=== PATIENT | male | born 1995 | race Caucasian/White ===

== ENCOUNTER 2016-11-05 13:46 | Emergency (ER) | payer MEDICAID ==
[~2016-11-05] VITALS: Ht 172.7 cm; Wt 61.4 kg
[2016-11-05 13:50] VITALS: TEMP 97.9
[2016-11-05 15:32] LABS: ADJUSTED CALCIUM 10.3 mg/dL (8.4-10.2); ALBUMIN 3.9 gm/dL (3.5-5.0); BILIRUBIN,TOTAL 0.8 mg/dL (0.0-1.0); CALCIUM 10.2 mg/dL (8.4-10.2); CREATININE, serum 0.81 mg/dL (0.66-1.25); TOTAL PROTEIN 8.2 gm/dL (6.4-8.2)
[2016-11-05 15:39] LABS: MEAN CELL VOLUME 82 fl (80.0-100.0); MEAN CORPUSCULAR HGB CONC 31 g/dl (33.0-37.0); MEAN PLATELET VOLUME 9.6 fl (7.4-10.4); PLATELET COUNT 399 K/mm3 (130-400); REDCELL DISTRIBUTION WIDTH-CV 15.2 % (11.5-14.5)
[2016-11-05 15:40] LABS: HEMATOCRIT 36.2 % (42.0-52.0); HEMOGLOBIN 11.2 g/dl (13.5-18.0); MEAN CORPUSCULAR HEMOGLOBIN 25 pg (27.0-31.0); WHITE BLOOD COUNT 37.4 K/mm3 (4.8-10.8)
[2016-11-05 15:41] LABS: ADD PATHOLOGY DIFF REVIEW NO
[2016-11-05 15:51] LABS: C-REACTIVE PROTEIN 20.6 mg/dL (0.0-0.9)
[2016-11-05 16:12] LABS: PH 5 (5-8); SQUAMOUS EPITHELIAL 0-2 /hpf; URINE APPEARANCE Turbid; URINE BACTERIA Rare /hpf; URINE BILIRUBIN Negative (NEGATIVE); URINE BLOOD Negative (NEGATIVE); URINE GLUCOSE Negative (NEGATIVE); URINE KETONE Trace (NEGATIVE); URINE RBC 0-2 /hpf; URINE UROBILINOGEN Negative (NEGATIVE)
[2016-11-05 16:14] LABS: URINE COLOR Yellow
[2016-11-05 16:42] LABS: BAND 6 % (0-10); HYPOCHROMIA 1+; NEUTROPHILS 81 % (42.0-75.2); PLATELET ESTIMATE NORMAL (NORMAL); TOTAL CELLS COUNTED 100
[2016-11-05 16:43] LABS: ANISOCYTOSIS 1+
[2016-11-05] MEDS ORDERED: NORCO 325 MG-51 TAB PO (16:54)
[2016-11-05 17:56] VITALS: BP 104/61; PULSE 96
== END 2016-11-05 17:57 | disposition home or self-care (01) ==
LOC: COL.ER 13:46
PROVIDERS: Nurse Practitioner
DX: M54.5 Low back pain (principal); Z85.71 Personal history of Hodgkin lymphoma; Z98.890 Other specified postprocedural states
CPT/HCPCS: J2270; J7030; Q9967

== ENCOUNTER 2016-11-15 05:30 | Emergency (ER) | payer MEDICAID ==
[~2016-11-15] VITALS: Ht 165.1 cm; Wt 59.1 kg
[~2016-11-15 05:30] MED LIST: NORCO 325 MG-51 TAB PO
[2016-11-15 05:32] VITALS: TEMP 99
[2016-11-15 06:06] LABS: MEAN CELL VOLUME 82 fl (80.0-100.0); MEAN CORPUSCULAR HGB CONC 31 g/dl (33.0-37.0); MEAN PLATELET VOLUME 8.8 fl (7.4-10.4); PLATELET COUNT 468 K/mm3 (130-400); REDCELL DISTRIBUTION WIDTH-CV 15.5 % (11.5-14.5)
[2016-11-15 06:18] LABS: ADD PATHOLOGY DIFF REVIEW NO; HEMOGLOBIN 11.1 g/dl (13.5-18.0); MEAN CORPUSCULAR HEMOGLOBIN 25 pg (27.0-31.0)
[2016-11-15 06:22] LABS: BAND 20 % (0-10); NEUTROPHILS 54 % (42.0-75.2); TOTAL CELLS COUNTED 100
[2016-11-15 06:25] LABS: ADJUSTED CALCIUM 10.2 mg/dL (8.4-10.2); ALBUMIN 3.9 gm/dL (3.5-5.0); BILIRUBIN,TOTAL 0.6 mg/dL (0.0-1.0); CALCIUM 10.1 mg/dL (8.4-10.2); CREATININE, serum 0.78 mg/dL (0.66-1.25); POTASSIUM 3.4 mmol/L (3.4-5.0); TOTAL PROTEIN 7.9 gm/dL (6.4-8.2)
[2016-11-15] MEDS ORDERED: NORCO 325 MG-51 TAB PO (07:13)
[2016-11-15 07:20] LABS: PH 5 (5-8); SQUAMOUS EPITHELIAL None Seen /hpf; URINE APPEARANCE Turbid; URINE BACTERIA Rare /hpf; URINE BILIRUBIN Negative (NEGATIVE); URINE BLOOD Negative (NEGATIVE); URINE COLOR Amber; URINE GLUCOSE Negative (NEGATIVE); URINE KETONE Negative (NEGATIVE); URINE RBC 0-2 /hpf; URINE UROBILINOGEN Negative (NEGATIVE)
[2016-11-15 08:00] VITALS: BP 107/67; PULSE 107
== END 2016-11-15 08:00 | disposition home or self-care (01) ==
LOC: COL.ER 05:30
PROVIDERS: Emergency Medicine
DX: M54.5 Low back pain (principal); C81.90 Hodgkin lymphoma, unspecified, unspecified site
CPT/HCPCS: J1885; J2270; J2405; J7030; Q9967

== ENCOUNTER 2016-11-25 01:21 | Inpatient (IN) | payer OTHER ==
[~2016-11-25] VITALS: Ht 175.3 cm; Wt 58.7 kg
[2016-11-25 02:06] LABS: MEAN CELL VOLUME 83 fl (80.0-100.0); MEAN CORPUSCULAR HGB CONC 30 g/dl (33.0-37.0); MEAN PLATELET VOLUME 8.8 fl (7.4-10.4); PLATELET COUNT 351 K/mm3 (130-400); RED BLOOD COUNT 4.16 M/mm3 (4.20-5.60); REDCELL DISTRIBUTION WIDTH-CV 15.8 % (11.5-14.5)
[2016-11-25 02:10] LABS: ADD PATHOLOGY DIFF REVIEW NO; HEMATOCRIT 34.3 % (42.0-52.0); HEMOGLOBIN 10.4 g/dl (13.5-18.0); MEAN CORPUSCULAR HEMOGLOBIN 25 pg (27.0-31.0); WHITE BLOOD COUNT 34.8 K/mm3 (4.8-10.8)
[2016-11-25 02:17] LABS: BAND 3 % (0-10); NEUTROPHILS 89 % (42.0-75.2); TOTAL CELLS COUNTED 100
[2016-11-25 02:18] LABS: ADJUSTED CALCIUM 9.9 mg/dL (8.4-10.2); ALBUMIN 3.6 gm/dL (3.5-5.0); ANISOCYTOSIS 1+; BILIRUBIN,TOTAL 0.7 mg/dL (0.0-1.0); CALCIUM 9.6 mg/dL (8.4-10.2); CREATININE, serum 0.74 mg/dL (0.66-1.25); MICROCYTOSIS 1+; POIKILOCYTOSIS 1+; POLYCHROMASIA 1+; POTASSIUM 3.9 mmol/L (3.4-5.0); ROULEAUX 2+; STOMATOCYTE 1+; TOTAL PROTEIN 7.9 gm/dL (6.4-8.2)
[2016-11-25 04:32] VITALS: BP 111/69; PULSE 112; TEMP 97.9
[2016-11-25 07:40] VITALS: BP 99/58; PULSE 122; TEMP 98.6
[2016-11-25 12:44] VITALS: BP 89/59; PULSE 120; TEMP 98.7
[2016-11-25 16:33] VITALS: BP 113/49; PULSE 130; TEMP 98.4
[2016-11-25 19:24] VITALS: BP 108/58; PULSE 125; TEMP 98.5
[2016-11-25 23:39] VITALS: BP 112/59; PULSE 130; TEMP 99.9
[2016-11-26 02:53] VITALS: BP 104/57; PULSE 108; TEMP 98.7
[2016-11-26 08:25] VITALS: BP 101/51; PULSE 123; TEMP 98.1
[2016-11-26 09:01] LABS: MEAN CELL VOLUME 84 fl (80.0-100.0); MEAN CORPUSCULAR HGB CONC 30 g/dl (33.0-37.0); PLATELET COUNT 284 K/mm3 (130-400); RED BLOOD COUNT 3.71 M/mm3 (4.20-5.60); REDCELL DISTRIBUTION WIDTH-CV 15.9 % (11.5-14.5)
[2016-11-26 09:04] LABS: ADD PATHOLOGY DIFF REVIEW NO; HEMATOCRIT 31.3 % (42.0-52.0); HEMOGLOBIN 9.4 g/dl (13.5-18.0); MEAN CORPUSCULAR HEMOGLOBIN 25 pg (27.0-31.0); WHITE BLOOD COUNT 34.6 K/mm3 (4.8-10.8)
[2016-11-26 09:13] LABS: CALCIUM 9.4 mg/dL (8.4-10.2); CREATININE, serum 0.66 mg/dL (0.66-1.25); POTASSIUM 4.3 mmol/L (3.4-5.0)
[2016-11-26 09:26] LABS: BAND 23 % (0-10); METAMYELOCYTE 2 % (0-0); NEUTROPHILS 65 % (42.0-75.2); PLATELET ESTIMATE NORMAL (NORMAL); TOTAL CELLS COUNTED 100
[2016-11-26 12:12] VITALS: BP 101/61; PULSE 112; TEMP 97.6
[2016-11-26 15:58] VITALS: BP 110/57; PULSE 107; TEMP 98.1
[2016-11-26 19:59] VITALS: BP 110/51; PULSE 121; TEMP 97.5
[2016-11-27 01:52] VITALS: BP 122/67; PULSE 107; TEMP 97.8
[2016-11-27 05:53] VITALS: BP 110/67; PULSE 104; TEMP 97.8
[2016-11-27 08:22] VITALS: BP 129/43; PULSE 116; TEMP 98.4
[2016-11-27] MEDS ORDERED: AMOXICILLIN 8751 TAB PO (09:04)
[2016-11-27] MEDS ORDERED: NORCO 325 MG-51 TAB PO (09:06)
[2016-11-27] MEDS ORDERED: PROAIR HFA0.09 MG/AC IH (09:06)
[2016-11-27] MEDS ORDERED: PREDNISONE20 MG PO (11:23)
== END 2016-11-27 12:20 | disposition home or self-care (01) | DRG 840 ==
LOC: COL.ER 01:21 → MEDICAL 03:06
PROVIDERS: Emergency Medicine; Physician Assistant
DX: C81.92 Hodgkin lymphoma, unspecified, intrathoracic lymph nodes (principal); E43 Unspecified severe protein-calorie malnutrition; Z68.1 Body mass index [BMI] 19.9 or less, adult; R00.0 Tachycardia, unspecified
CPT/HCPCS: 99223-AI; 99233-AI; 99239; J0696; J1650; J2765; J3010; J7030; J7512; Q9967

== ENCOUNTER → 2017-05-15 | Outpatient (CLI) | payer OTHER ==
[~2017-05-15] MED LIST changes: +AMOXICILLIN 8751 TAB PO; +PREDNISONE20 MG PO; +PROAIR HFA0.09 MG/AC IH
== END ==
LOC: COL.RAD 10:00
DX: C81.18 Nodular sclerosis Hodgkin lymphoma, lymph nodes of multiple sites (principal); R59.0 Localized enlarged lymph nodes; K02.9 Dental caries, unspecified; R91.8 Other nonspecific abnormal finding of lung field
CPT/HCPCS: Q9967

== ENCOUNTER → 2017-07-17 | Outpatient (CLI) | payer OTHER | LOC: COL.RAD 12:35 | DX: C81.18 Nodular sclerosis Hodgkin lymphoma, lymph nodes of multiple sites (principal); R59.0 Localized enlarged lymph nodes; D73.89 Other diseases of spleen; Z95.828 Presence of other vascular implants and grafts | CPT/HCPCS: Q9967 ==

== ENCOUNTER 2017-11-30 17:41 | Emergency (ER) | payer OTHER ==
[~2017-11-30] VITALS: Ht 172.7 cm; Wt 59.1 kg
[2017-11-30 17:44] VITALS: TEMP 99.1
[2017-11-30 18:28] LABS: BASO % 0.1 % (0.0-2.0); EOS % 0.1 % (0-4.0); GRAN # 4.2 (1.4-6.5); GRAN % 56.3 % (42.2-75.2); HEMATOCRIT 28.4 % (42.0-52.0); HEMOGLOBIN 9.1 g/dl (13.5-18.0); LYMPH # 2.6 (1.2-3.4); MEAN CELL VOLUME 89 fl (80.0-100.0); MEAN CORPUSCULAR HEMOGLOBIN 28 pg (27.0-31.0); MEAN CORPUSCULAR HGB CONC 32 g/dl (33.0-37.0); MEAN PLATELET VOLUME 9.9 fl (7.4-10.4); MONO # 0.6 (0.1-0.6); PLATELET COUNT 150 K/mm3 (130-400)
[2017-11-30 18:31] LABS: COLLECTION METHOD CLEAN CATCH
[2017-11-30 18:36] LABS: BILIRUBIN,TOTAL 0.4 mg/dL (0.0-1.0); C-REACTIVE PROTEIN 6.1 mg/dL (0.0-0.9); CALCIUM 9.3 mg/dL (8.4-10.2); CREATININE, serum 0.82 mg/dL (0.66-1.25); POTASSIUM 4.1 mmol/L (3.4-5.0); TOTAL PROTEIN 7.5 gm/dL (6.4-8.2)
[2017-11-30 18:39] LABS: PH 6 (5-8); SQUAMOUS EPITHELIAL None Seen /hpf; URINE APPEARANCE Clear; URINE BACTERIA None Seen /hpf; URINE BILIRUBIN Negative (NEGATIVE); URINE BLOOD Negative (NEGATIVE); URINE COLOR Yellow; URINE GLUCOSE Negative (NEGATIVE); URINE KETONE Negative (NEGATIVE); URINE LEUKOCYTE ESTERASE Negative (NEGATIVE); URINE NITRATE Negative (NEGATIVE); URINE PROTEIN(semi-quant) Negative (NEGATIVE); URINE RBC 0-2 /hpf; URINE UROBILINOGEN Negative (NEGATIVE)
[2017-11-30] MEDS ORDERED: BACTRIM DS 8001 TAB PO (19:29)
[2017-11-30] MEDS ORDERED: ZOVIRAX800 MG PO (19:30)
[2017-11-30] MEDS ORDERED: ZOFRAN 4MG T4 MG/TAB PO (20:26)
[2017-11-30] MEDS ORDERED: LEVAQUIN 750MG750 M1 PO (20:26)
[2017-11-30 20:57] VITALS: BP 107/62; PULSE 99
== END 2017-11-30 20:59 | disposition home or self-care (01) ==
LOC: COL.ER 17:41
PROVIDERS: Emergency Medicine
DX: J06.9 Acute upper respiratory infection, unspecified (principal); Z94.81 Bone marrow transplant status; Z85.71 Personal history of Hodgkin lymphoma
CPT/HCPCS: J2405; J7030

== ENCOUNTER → 2018-02-12 | Outpatient (CLI) | payer OTHER ==
[~2018-02-12] MED LIST changes: +BACTRIM DS 8001 TAB PO; +LEVAQUIN 750MG750 M1 PO; +ZOFRAN 4MG T4 MG/TAB PO; +ZOVIRAX800 MG PO
== END ==
LOC: COL.RAD 08:30
DX: C81.18 Nodular sclerosis Hodgkin lymphoma, lymph nodes of multiple sites (principal); K80.20 Calculus of gallbladder without cholecystitis without obstruction; R59.0 Localized enlarged lymph nodes; R16.1 Splenomegaly, not elsewhere classified; R19.09 Other intra-abdominal and pelvic swelling, mass and lump
CPT/HCPCS: Q9967

== ENCOUNTER → 2018-04-20 | Outpatient (CLI) | payer OTHER | LOC: COL.RAD 09:30 | DX: C81.18 Nodular sclerosis Hodgkin lymphoma, lymph nodes of multiple sites (principal); R59.0 Localized enlarged lymph nodes; R91.8 Other nonspecific abnormal finding of lung field ==

== ENCOUNTER → 2020-03-02 | Outpatient (REF) | LOC: WSOH 09:12 → WSPT 09:30 | DX: Z02.1 Encounter for pre-employment examination (principal) ==

== ENCOUNTER → 2020-08-08 | Outpatient (CLI) | payer BC | LOC: COL.RAD 10:14 | DX: I86.1 Scrotal varices (principal) ==

== ENCOUNTER → 2021-01-24 | Outpatient (CLI) | payer OTHER | LOC: COL.RAD 07:03 | DX: R59.9 Enlarged lymph nodes, unspecified (principal); C81.18 Nodular sclerosis Hodgkin lymphoma, lymph nodes of multiple sites | CPT/HCPCS: Q9967 ==

== ENCOUNTER → 2021-02-06 | Outpatient (CLI) | payer OTHER | LOC: COL.VAS 06:50 | DX: I82.601 Acute embolism and thrombosis of unspecified veins of right upper extremity (principal) ==